=== PATIENT | female | born 1960 | race Caucasian/White ===

== ENCOUNTER 2017-03-30 18:30 | Emergency (ER) | payer OTHER ==
[~2017-03-30] VITALS: Ht 172.7 cm; Wt 81.7 kg
[2017-03-30] MEDS ORDERED: ZYRTEC10 M5 PO (18:36)
[2017-03-30] MEDS ORDERED: SINGULAIR 10 MG10 M1 PO (18:37)
[2017-03-30] MEDS ORDERED: TRIAMTERENE/HCT1 CA1 PO (18:37)
[2017-03-30] MEDS ORDERED: BREO ELLIPTA 11 EACH IH (18:37)
[2017-03-30 20:57] VITALS: BP 149/72
== END 2017-03-30 20:57 | disposition home or self-care (01) ==
LOC: ER 18:30
DX: S61.412A Laceration without foreign body of left hand, initial encounter (principal); J45.909 Unspecified asthma, uncomplicated; Z90.49 Acquired absence of other specified parts of digestive tract; Z98.890 Other specified postprocedural states; Z88.8 Allergy status to other drugs, medicaments and biological substances; F10.99 Alcohol use, unspecified with unspecified alcohol-induced disorder; W25.XXXA Contact with sharp glass, initial encounter; Y93.89 Activity, other specified; Y92.89 Other specified places as the place of occurrence of the external cause; Y99.8 Other external cause status